=== PATIENT | female | born 1940 ===

== ENCOUNTER 2018-10-28 15:13 | Outpatient (REF) | payer MEDICARE, BC, SELFPAY ==
[2018-10-28 18:48] LABS: Anion Gap 8.4 mmol/L (3-11); BUN 22 mg/dL (7-18); CO2 29.6 mmol/L (21.0-32.0); Calcium 9.3 mg/dL (8.5-10.1); Chloride 101 mmol/L (98-107); Glucose 165 mg/dL (70-100); Potassium 4.4 mmol/L (3.5-5.1); Sodium 139 mmol/L (136-145)
== END 2018-10-28 15:33 ==
LOC: NCHCN 15:13
PROVIDERS: PCP Internal Medicine; Visit Provider Internal Medicine
DX: E11.40 Type 2 diabetes mellitus with diabetic neuropathy, unspecified (principal); I10 Essential (primary) hypertension
CPT/HCPCS: 80048; 84443

== ENCOUNTER 2020-02-22 13:02 | Outpatient (REF) | payer MEDICARE, BC, SELFPAY ==
[2020-02-22 21:32] LABS: Anion Gap 10.4 mmol/L (3-11); BUN 19 mg/dL (7-18); CO2 27.6 mmol/L (21.0-32.0); CREATININE 0.93 mg/dL (0.55-1.02); Calcium 9.5 mg/dL (8.5-10.1); Chloride 102 mmol/L (98-107); Estimated GFR 58.16 (mL/min/1.73m2); Glucose 117 mg/dL (74-106); Potassium 4.6 mmol/L (3.5-5.1); Sodium 140 mmol/L (136-145)
== END 2020-02-22 13:22 ==
LOC: NCHCN 13:02
PROVIDERS: PCP Internal Medicine; Visit Provider Internal Medicine
DX: E11.40 Type 2 diabetes mellitus with diabetic neuropathy, unspecified (principal); Z00.00 Encounter for general adult medical examination without abnormal findings; H40.9 Unspecified glaucoma; I10 Essential (primary) hypertension
CPT/HCPCS: 80048

== ENCOUNTER 2021-03-08 15:45 | Outpatient (REF) | payer MEDICARE, BC, SELFPAY ==
[2021-03-08 19:39] LABS: Anion Gap 9.4 mmol/L (3-11); BUN 24 mg/dL (7-18); CO2 28.6 mmol/L (21.0-32.0); CREATININE 0.9 mg/dL (0.55-1.02); Calcium 10.6 mg/dL (8.5-10.1); Chloride 103 mmol/L (98-107); Glucose 108 mg/dL (74-106); LDL CHOLESTEROL 89 mg/dL (<100); Potassium 4.7 mmol/L (3.5-5.1); Sodium 141 mmol/L (136-145)
== END 2021-03-08 15:46 | disposition home or self-care (01) ==
LOC: NCHCN 15:45
PROVIDERS: PCP Internal Medicine; Visit Provider Internal Medicine
DX: I10 Essential (primary) hypertension (principal); E11.9 Type 2 diabetes mellitus without complications
CPT/HCPCS: 80048; 83721

== ENCOUNTER 2022-04-11 15:16 | Outpatient (REF) | payer MEDICARE, BC, SELFPAY ==
[2022-04-11 19:53] LABS: Anion Gap 5.8 mmol/L (3-11); BUN 27 mg/dL (7-18); CO2 31.2 mmol/L (21.0-32.0); Calcium 9.8 mg/dL (8.5-10.1); Calculated LDL 88 mg/dL (<100); Chloride 99 mmol/L (98-107); Cholesterol 177 mg/dL (<200); Glucose 300 mg/dL (74-106); HDL Cholesterol 49 mg/dL (40-60); Potassium 4.4 mmol/L (3.5-5.1); Sodium 136 mmol/L (136-145); TSH 2.53 uIU/mL (0.36-3.74); Triglyceride 200 mg/dL (<150)
== END 2022-04-11 15:17 | disposition home or self-care (01) ==
LOC: NCHCN 15:16
PROVIDERS: PCP Internal Medicine; Visit Provider Internal Medicine
DX: E11.9 Type 2 diabetes mellitus without complications (principal); I10 Essential (primary) hypertension; E66.9 Obesity, unspecified
CPT/HCPCS: 80048; 80061; 84443

== ENCOUNTER 2023-08-07 15:08 | Outpatient (REF) | payer MEDICARE, BC, SELFPAY ==
[2023-08-07 19:16] LABS: Anion Gap 8.5 mmol/L (3-11); BUN 28 mg/dL (7-18); CO2 29.5 mmol/L (21.0-32.0); Calcium 9.8 mg/dL (8.5-10.1); Chloride 101 mmol/L (98-107); Estimated GFR 56.25 (mL/min/1.73m2); Glucose 216 mg/dL (74-106); Potassium 3.9 mmol/L (3.5-5.1); Sodium 139 mmol/L (136-145); TSH 3.43 uIU/mL (0.36-3.74)
[2023-08-07 19:27] LABS: Hemoglobin A1C 7.3 % (<5.7)
== END 2023-08-07 15:09 | disposition home or self-care (01) ==
LOC: NCHCN 15:08
PROVIDERS: PCP Internal Medicine; Visit Provider Internal Medicine
DX: E11.9 Type 2 diabetes mellitus without complications (principal)
CPT/HCPCS: 80048; 83036; 84443

== ENCOUNTER 2024-08-11 17:46 | Outpatient (REF) | payer MEDICARE, BC, SELFPAY ==
[2024-08-11 19:18] LABS: Anion Gap 6.8 mmol/L (3-11); BUN 26 mg/dL (7-18); CO2 32.2 mmol/L (21.0-32.0); CREATININE 1.2 mg/dL (0.55-1.02); Chloride 102 mmol/L (98-107); Estimated GFR 44.91 (mL/min/1.73m2); Glucose 208 mg/dL (74-106); Potassium 4.3 mmol/L (3.5-5.1); Sodium 141 mmol/L (136-145); TSH 2.33 uIU/mL (0.36-3.74)
== END 2024-08-11 17:47 | disposition home or self-care (01) ==
LOC: NCHCN 17:46
PROVIDERS: PCP Internal Medicine; Visit Provider Internal Medicine
DX: I10 Essential (primary) hypertension (principal)
CPT/HCPCS: 80048; 84443

== ENCOUNTER 2025-02-08 15:41 | Outpatient (REF) | payer MEDICARE, BC, SELFPAY ==
[2025-02-08 21:39] LABS: Anion Gap 8.1 mmol/L (3-11); BUN 23 mg/dL (7-18); CO2 31.9 mmol/L (21.0-32.0); Calcium 9.8 mg/dL (8.5-10.1); Chloride 99 mmol/L (98-107); Estimated GFR 55.55 (mL/min/1.73m2); Glucose 231 mg/dL (74-106); Potassium 3.7 mmol/L (3.5-5.1); Sodium 139 mmol/L (136-145)
[2025-02-09 20:06] LABS: HIV-1/2 Ag & Ab Screen Negative (Negative)
[2025-02-09 20:10] LABS: Hepatitis C Ab w Rflx HCV PCR Negative (Negative)
== END 2025-02-08 15:42 | disposition home or self-care (01) ==
LOC: NCHCN 15:41
PROVIDERS: PCP Internal Medicine; Visit Provider Internal Medicine
DX: I10 Essential (primary) hypertension (principal); Z11.4 Encounter for screening for human immunodeficiency virus [HIV]
CPT/HCPCS: 80048; 86803; 87389